=== PATIENT | male | born 1960 | race African-American/Black ===

== ENCOUNTER 2017-06-21 07:36 | Emergency (ER) | payer MEDICAID ==
[~2017-06-21] VITALS: Ht 180.3 cm; Wt 110.0 kg
[2017-06-21] MEDS ORDERED: INSULIN (07:43)
[2017-06-21] MEDS ORDERED: LISINOPRIL (07:43)
[2017-06-21 09:30] VITALS: BP 173/92
== END 2017-06-21 09:31 | disposition home or self-care (01) ==
LOC: ER 07:46
DX: R04.0 Epistaxis (principal); I10 Essential (primary) hypertension; E11.9 Type 2 diabetes mellitus without complications; Z79.4 Long term (current) use of insulin
CPT/HCPCS: 99283; Z7610